=== PATIENT | male | born 1960 | race Caucasian/White ===

== ENCOUNTER 2016-11-26 12:20 | Inpatient (IN) | payer MEDICAID, OTHER ==
[~2016-11-26] VITALS: Ht 172.7 cm; Wt 107.0 kg
[2016-11-26 15:18] LABS: MEAN CORPUSCULAR HGB CONC 30.9 g/dL (31.0-37.0); MEAN CORPUSCULAR VOLUME 74.2 fL (80.0-94.0); PLATELET 179 x1000/uL (130-400); RED BLOOD CELL COUNT 2.82 mill/uL (4.7-6.1); RED CELL DISTRIBUTION WIDTH 21.6 % (11.6-14.6); WHITE BLOOD COUNT 3.1 x1000/uL (4.5-11.0)
[2016-11-26 15:24] LABS: INR 1.1; PROTHROMBIN TIME 11.7 sec
[2016-11-26 15:27] LABS: CHLORIDE 106 mEq/L (98-107); INDEX HEMOLYSI 1 (1-3); INDEX ICTERIC 1 (1-4); INDEX LIPEMIC 1 (1-3)
[2016-11-26 15:30] LABS: HEMOGLOBIN 6.5 g/dL (14.0-18.0); HEMOGLOBIN. 6.5 g/dL (14.0-18.0)
[2016-11-26 15:31] LABS: ALANINE AMINOTRANSFERASE 45 IU/L (13-61); ALBUMIN 2.8 g/dL (3.4-5.0); ANION GAP 13; CALCIUM 8.4 mg/dL (8.5-10.1); CARBON DIOXIDE 24 mEq/L (21-32); DIFFERENTIAL COMMENT 1; HEMATOCRIT. 20.9 % (42.0-52.0); LIPASE 184 IU/L (73-393); UREA NITROGEN BLOOD 12 mg/dL (7-21)
[2016-11-26 15:34] LABS: eGFR > 60 mL/min (>60)
[2016-11-26 15:57] LABS: HYPOCHROMASIA 1+; PLATELET ESTIMATE NORMAL
[2016-11-26] MEDS ORDERED: DIPHENHYDRAMINE 50MG/ML VIAL IV PRN (20:00)
[2016-11-26] MEDS ORDERED: DEXTROSE 50% WATER 50ML SYRINGE IV PRN (20:00)
[2016-11-26] MEDS ORDERED: ONDANSETRON HCL 4MG/2ML VIAL IV PRN (20:00)
[2016-11-26] MEDS ORDERED: MAGNESIUM/ALUMINUM HYDROXIDE/SIMETHICONE 30ML UDC PO PRN (20:00)
[2016-11-26] MEDS ORDERED: CLONIDINE 0.1MG TABLET PO PRN (20:00)
[2016-11-26 20:13] LABS: INDEX HEMOLYSI 1 (1-3); INDEX ICTERIC 1 (1-4); INDEX LIPEMIC 1 (1-3); IRON 16 ug/dL (50-175); TOTAL IRON BINDING CAPACITY 464 ug/dL (250-450)
[2016-11-26] MEDS ORDERED: SODIUM CHLORIDE 0.9% 1,000 ML IV SCH (23:30)
[2016-11-27] VITALS (12 sets, daily range): BP systolic 94–120; BP diastolic 59–78
[2016-11-27] MEDS: BLOOD SUGAR DIAGNOSTIC STRIP TEST SCH ×4 (07:20→21:00)
[2016-11-27] MEDS: INSULIN LISPRO 100 UNITS/ML SUBCUT SCH ×4 (07:50→21:00)
[2016-11-27 09:08] LABS: HEMATOCRIT 24.5 % (42.0-52.0); HEMOGLOBIN 7.7 g/dL (14.0-18.0); MEAN CORPUSCULAR HEMOGLOBIN 23.7 pg (28.0-32.0); MEAN CORPUSCULAR HGB CONC 31.5 g/dL (31.0-37.0); MEAN CORPUSCULAR VOLUME 75.1 fL (80.0-94.0); PLATELET 168 x1000/uL (130-400); RED BLOOD CELL COUNT 3.26 mill/uL (4.7-6.1); RED CELL DISTRIBUTION WIDTH 20.3 % (11.6-14.6)
[2016-11-27] MEDS ORDERED: ACET-2178 PO (10:33)
[2016-11-27] MEDS ORDERED: LOSA25TA12 PO (10:36)
[2016-11-27] MEDS ORDERED: IBUP-1510 PO (10:36)
[2016-11-27] MEDS ORDERED: LEVO100T9 * (10:39)
[2016-11-27] MEDS ORDERED: VALS80TA2 PO (10:39)
[2016-11-27] MEDS ORDERED: SITA1TAB8 PO (10:40)
[2016-11-27] MEDS ORDERED: GLIP10TA10 PO (10:42)
[2016-11-27] MEDS ORDERED: FENTANYL CITRATE/PF 50MCG/ML 2ML VIAL ONE (11:05)
[2016-11-27] MEDS ORDERED: SIMETHICONE 40 MG/0.6 ML 30ML ONE (11:05)
[2016-11-27] MEDS ORDERED: MIDAZOLAM HCL 5 MG/5 ML VIAL ONE (11:06)
[2016-11-27] MEDS ORDERED: FENTANYL CITRATE/PF 50MCG/ML 2ML VIAL IV ONE (11:42)
[2016-11-27] MEDS ORDERED: MIDAZOLAM HCL 5 MG/5 ML VIAL IV ONE (12:15)
[2016-11-27] MEDS: ACETAMINOPHEN 325MG TABLET PO PRN ×2 (16:57→22:22)
[2016-11-27 18:25] LABS: HEMATOCRIT 26.7 % (42.0-52.0); HEMOGLOBIN 8.5 g/dL (14.0-18.0); MEAN CORPUSCULAR HGB CONC 31.8 g/dL (31.0-37.0); MEAN CORPUSCULAR VOLUME 75.4 fL (80.0-94.0); PLATELET 170 x1000/uL (130-400); RED BLOOD CELL COUNT 3.54 mill/uL (4.7-6.1); RED CELL DISTRIBUTION WIDTH 20.5 % (11.6-14.6); WHITE BLOOD COUNT 3.4 x1000/uL (4.5-11.0)
[2016-11-27] MEDS: IRON SUCROSE COMPLEX 100 MG/5 ML ML IV SCH (19:10)
[2016-11-28] VITALS: BP 122/69
[2016-11-28 04:00] VITALS: BP 107/58
[2016-11-28 06:32] LABS: BASOPHILS % 0.9 % (0.0-2.0); DIFFERENTIAL COMMENT 0; EOSINOPHILS % 2.2 % (0.0-5.0); HEMATOCRIT. 28.5 % (42.0-52.0); HEMOGLOBIN. 9.2 g/dL (14.0-18.0); LYMPHOCYTES % 22.6 % (20.0-50.0); MEAN CORPUSCULAR HGB CONC 32.2 g/dL (31.0-37.0); MEAN CORPUSCULAR VOLUME 74.6 fL (80.0-94.0); MEAN PLATELET VOLUME 7.4 fl (7.4-10.4); NEUTROPHILS % 60.3 % (40.0-76.0); PLATELET 170 x1000/uL (130-400); RED BLOOD CELL COUNT 3.82 mill/uL (4.7-6.1); RED CELL DISTRIBUTION WIDTH 20.7 % (11.6-14.6); WHITE BLOOD COUNT 3.6 x1000/uL (4.5-11.0)
[2016-11-28] MEDS: BLOOD SUGAR DIAGNOSTIC STRIP TEST SCH ×2 (07:02→12:49)
[2016-11-28 07:15] LABS: CHLORIDE 105 mEq/L (98-107); INDEX HEMOLYSI 1 (1-3); INDEX ICTERIC 1 (1-4); INDEX LIPEMIC 1 (1-3)
[2016-11-28] MEDS: INSULIN LISPRO 100 UNITS/ML SUBCUT SCH ×2 (07:50→13:09)
[2016-11-28 08:00] VITALS: BP 105/60
[2016-11-28 08:15] LABS: ALANINE AMINOTRANSFERASE 40 IU/L (13-61); ALBUMIN 2.9 g/dL (3.4-5.0); ANION GAP 14; CALCIUM 8.3 mg/dL (8.5-10.1); CARBON DIOXIDE 26 mEq/L (21-32); UREA NITROGEN BLOOD 10 mg/dL (7-21); eGFR > 60 mL/min (>60)
[2016-11-28] MEDS ORDERED: IRON SUCROSE COMPLEX 100 MG/5 ML ML IV SCH (09:00)
[2016-11-28] MEDS: IRON SUCROSE COMPLEX 100 MG/5 ML ML IV SCH (09:12)
[2016-11-28 12:00] VITALS: BP 109/61
[2016-11-28 12:16] LABS: HEPATITIS B SURFACE ANTIGEN NEGATIVE
[2016-11-28 12:41] LABS: HEPATITIS C VIR.AB 0.14 INDEXVAL (0.00-0.80)
[2016-11-28 12:43] LABS: HEPATITIS B CORE AB IGM NEGATIVE
[2016-11-28 12:44] LABS: HEPATITIS A AB IGM NEGATIVE (NEGATIVE)
[2016-11-28 15:36] VITALS: BP 109/61
== END 2016-11-28 17:20 | disposition home or self-care (01) | DRG 264 ==
LOC: ER 14:41 → 6EST 16:47
PROVIDERS: ADMIT Internal Medicine; ATTEND Internal Medicine
PROC: 06L Lower Veins, Occlusion (ICD-10-PCS; 2016-11-27)
PROC: 30233N1 Transfusion of Nonautologous Red Blood Cells into Peripheral Vein, Percutaneous Approach (ICD-10-PCS; principal; 2016-11-27 11:00)
DX: K70.30 Alcoholic cirrhosis of liver without ascites (principal); I85.11 Secondary esophageal varices with bleeding; K76.6 Portal hypertension; K92.2 Gastrointestinal hemorrhage, unspecified; D50.0 Iron deficiency anemia secondary to blood loss (chronic); I10 Essential (primary) hypertension; E11.9 Type 2 diabetes mellitus without complications; E03.9 Hypothyroidism, unspecified; E78.00 Pure hypercholesterolemia, unspecified; M17.9 Osteoarthritis of knee, unspecified; E78.5 Hyperlipidemia, unspecified; E66.9 Obesity, unspecified; F10.10 Alcohol abuse, uncomplicated; K31.89 Other diseases of stomach and duodenum; Z82.49 Family history of ischemic heart disease and other diseases of the circulatory system; Z90.49 Acquired absence of other specified parts of digestive tract; Z83.3 Family history of diabetes mellitus; Z68.35 Body mass index [BMI] 35.0-35.9, adult
CPT/HCPCS: 36415; 76700; 80053; 82105; 82962; 83036; 83540; 83550; 83690; 85018; 85025; 85027; 85610; 86705; 86709; 86803; 86850; 86900; 86920; 87340; 99285; J1815; J2250; J3010; J7040; P9016